=== PATIENT | male | born 1940 | race Caucasian/White ===

== ENCOUNTER 2022-03-12 13:31 | Emergency (ER) | payer OTHER ==
[2022-03-12] MEDS ORDERED: Acetaminophen 500 MG TAB ONE (14:16)
== END 2022-03-12 15:30 ==
LOC: NAV ERS 13:31
DX: S13.9XXA Sprain of joints and ligaments of unspecified parts of neck, initial encounter (principal); S00.01XA Abrasion of scalp, initial encounter; E03.9 Hypothyroidism, unspecified; M10.9 Gout, unspecified; I25.10 Atherosclerotic heart disease of native coronary artery without angina pectoris; H40.9 Unspecified glaucoma; W06.XXXA Fall from bed, initial encounter; Z87.891 Personal history of nicotine dependence; Z79.82 Long term (current) use of aspirin; Z79.899 Other long term (current) drug therapy
CPT/HCPCS: 70450; 72125